=== PATIENT | male | born 1930 | race Caucasian/White ===

== ENCOUNTER 2016-03-18 12:07 | Emergency (ER) | payer MEDICARE, OTHER ==
[2015-10-24 11:55] VITALS: BMI 27.5
[~2016-03-18 12:07] MED LIST: ADVAIR 500/501 DISK INH; ARBINOXA4 MG/5 ML PO; ARICEPT10 MG PO; ASTELIN137 MCG NASAL; FISH OIL 1,0001 CA1 PO; HYDROCODONE-APA1 TAB PO; IPRAT-ALBUT 0.5-3 ML UPD; JANUVIA100 MG PO; K-DUR20 MEQ PO; LEVAQUIN750 MG PO; MUCINEX600 MG PO; MUCOMYST 2800 MG/4 M PO; NAMENDA10 MG PO; NORVASC10 MG PO; PLAVIX75 MG PO; PRAVACHOL40 MG PO; SINGULAIR10 MG PO; STERAPRED DS 1210 MG PO; TOPROL XL100 MG PO; TRAZODONE HCL50 MG PO; VENTOLIN HFA18 GM INH; VITAMIN B-1000 MCG/M IM; ZANTAC300 MG PO; ZYLOPRIM100 MG PO
[2016-03-18 13:08] LABS: BASOPHILS 0.3 % (0.0-2.0); EOSINOPHILS 2.3 % (0-7); HEMATOCRIT 41.1 % (42.0-54.0); HEMOGLOBIN 13.5 g/dL (13.5-17.5); IMMATURE GRANULOCYTES 0.3 % (0-5); LYMPHOCYTES 18.9 % (15-50); MCHC 32.8 g/dL (31.0-37.0); MCV 103.5 fL (80.0-100.0); MEAN PLATELET VOLUME 10.9 fL (7.4-10.4); NEUTROPHILS 70.2 % (40-80); PLATELET COUNT 142 10x3/uL (130-400); RBC 3.97 10x6/uL (4.20-6.10); RDW 13.3 % (11.5-14.5); WBC 11.5 10x3/uL (4.8-10.8)
[2016-03-18 13:31] LABS: ALBUMIN 3.7 g/dL (3.4-5.0); ALKALINE PHOSPHATASE 76 U/L (46-116); ALT (SGPT) 31 U/L (10-68); BILIRUBIN - TOTAL 0.51 mg/dL (0.2-1.3); CALC OSMOLALITY 279 mosm/kg (275-300); CALCIUM 9.7 mg/dL (8.5-10.1); CARBON DIOXIDE 27.7 mmol/L (21.0-32.0); CHLORIDE - SERUM 105 mmol/L (98-107); CREATININE - SERUM 1.6 mg/dL (0.6-1.3); POTASSIUM - SERUM 4.6 mmol/L (3.5-5.1); PROTEIN - SERUM 6.8 g/dL (6.4-8.2); SODIUM 140 mmol/L (136-145); UREA NITROGEN 15 mg/dL (7-18); eGFR NON AFRICAN AMERICAN 44 mL/min (90-120)
[2016-03-18 13:32] LABS: GLUCOSE 100 mg/dL (74-106)
[2016-03-18 13:42] LABS: CHOL - HDL RATIO 3.2 ratio (2.3-4.9); CHOLESTEROL, TOTAL 109 mg/dL (0-200); CKMB 0.9 U/L (0.0-3.6); CREATINE KINASE 70 UL (21-232); HDL CHOLESTEROL 34 mg/dL (32-96); LDL CHOLESTEROL 40 mg/dL (0-100); LDL-HDL RATIO 1.2 ratio (1.5-3.5); TRIGLYCERIDE 179 mg/dL (30-200)
[2016-03-18 13:46] LABS: TROPONIN-I < 0.017 ng/mL (0.000-0.060)
== END 2016-03-18 15:27 | disposition home or self-care (01) ==
LOC: D.ER 12:07
PROVIDERS: Emergency Medicine
DX: R11.0 Nausea (principal); R10.13 Epigastric pain; E11.9 Type 2 diabetes mellitus without complications; Z95.0 Presence of cardiac pacemaker; I45.10 Unspecified right bundle-branch block

== ENCOUNTER → 2017-01-26 09:26 | Outpatient (CLI) | payer MEDICARE, OTHER ==
[2015-10-24 11:55] VITALS: BMI 27.5
== END | disposition home or self-care (01) ==
LOC: D.US 01-25 11:30
DX: I71.4 Abdominal aortic aneurysm, without rupture (principal)

== ENCOUNTER 2017-09-08 15:07 | Inpatient (IN) | payer MEDICARE, OTHER ==
[~2017-09-08] VITALS: Ht 172.7 cm; Wt 80.3 kg
--- NOTE | ~2017-09-08 | CN ---
PATIENT NAME:CHOLO UP MEDICAL RECORD: [id number] : 32 LOCATION:[facility] ADMIT DATE: 09/08/17 ACCOUNT: [id number] CONSULTING PHYSICIAN: BULMARO FERGUSON MD REFERRING PHYSICIAN: ROSALIA JORDAN MD DATE OF CONSULTATION: 09/12/2017 CONSULT REQUESTING PHYSICIAN: Teofilo Milton MD REASON FOR CONSULTATION: Bilateral pneumonia, [id number] hypoxic respiratory failure. HISTORY OF PRESENT ILLNESS: Mr. Up is an 86-year-old gentleman who was just discharged from the rehabilitation. The patient was readmitted with shortness of breath as well as severe backache. Chest radiograph showed bilateral infiltrate. He has cough without significant sputum production. He is also feeling very weak and lethargic. REVIEW OF SYSTEMS: Mainly in the history of present illness. PAST MEDICAL HISTORY: 1. Asthma. 2. History of BPH. 3. Hypertension. 4. Coronary artery disease. 5. History of aortic aneurysm. ALLERGIES: There is no known drug allergies. PAST SURGICAL HISTORY: 1. He has had TURP surgery. 2. Cataract surgery. MEDICATIONS: On Elivar is reviewed. PERSONAL AND SOCIAL HISTORY: The patient is and lives with his . He is drinking, but he is an ex-smoker. FAMILY HISTORY: Noncontributory. PHYSICAL EXAMINATION: GENERAL: Now, the patient is lying comfortably in bed. He is not in acute distress. VITAL SIGNS: The blood pressure is 103/82, pulse is 72, respiration is 18, temperature is 98.1, and SpO2 is 100% on 10 liters oxymizer. HEENT: Conjunctivae are pink. Sclerae are not icteric. NECK: The neck is supple, no JVD. CHEST: The chest excursion is minimal on both sides with bilateral crackles. No wheezing. HEART: Rhythm regular, normal sound, no murmur. ABDOMEN: The abdomen is soft, bowel sounds present. No hepatosplenomegaly. RECTAL: Deferred. EXTREMITIES: No cyanosis, no clubbing, no pedal edema. SKIN: The skin is warm, normal turgor. CENTRAL NERVOUS SYSTEM: The patient is awake and alert. There are no obvious CONSULT REPORT [id number] CHOLO UP cranial nerve abnormality. The gait was not tested. IMAGING: CT scan of the chest: There was no PE. There are bilateral lower lobe infiltrates. There is a small pleural effusion. LABORATORY DATA: CBC: The WBC is 14.4, hemoglobin 8.2, hematocrit 25.1, it dropped to 23.8. Platelet count is 249. IMPRESSION: 1. Acute hypoxic respiratory failure. 2. Bilateral lower lobe pneumonia, most likely hospital-acquired pneumonia. 3. Chronic obstructive pulmonary disease, acute exacerbation. 4. Bilateral pleural effusion, possible parapneumonic. 5. Leukocytosis secondary to pneumonia, possible urinary tract infection. 6. Backache. 7. Anemia, possible GI blood loss. 8. Possible urinary tract infection. RECOMMENDATION: 1. Continue supplemental oxygen. Agree with blood transfusion. 2. Cover for the hospital-acquired pneumonia. Continue Levaquin. I will add cefepime. 3. Albuterol, ipratropium nebulizer. 4. Brovana, budesonide nebulizer. 5. Follow up labs and chest radiograph. Dr. Milton, thank you for involving me in the care of Mr. Up. TRANSINT:[id number] Voice Confirmation ID: [id number] DOCUMENT ID: [id number] BULMARO FERGUSON MD at 1110 CC: [id number] DICTATION DATE: 09/12/17 183 PREMIX CONCRETE BATCHER: 09/12/17 1930 ADM IN [place] [id number] [place] [address]
[2017-09-08] MEDS ORDERED: DIOVAN160 MG PO (15:19)
[2017-09-08] MEDS ORDERED: OXYBUTYNIN CHLOR5 MG PO (15:19)
[2017-09-08] MEDS ORDERED: PROSCAR5 MG PO (15:19)
[2017-09-08] MEDS ORDERED: LIPITOR10 MG PO (15:20)
[2017-09-08] MEDS ORDERED: CLARITIN10 MG/TAB PO (15:20)
[2017-09-08] MEDS ORDERED: NEURONTIN600 MG PO (15:20)
[2017-09-08] MEDS ORDERED: FLUTICASONE PRO16 GM NASAL (15:21)
[2017-09-08] MEDS ORDERED: CYCLOBENZAPRINE10 MG PO (15:21)
[2017-09-09] VITALS: BP 189/59
[2017-09-09 00:03] VITALS: BP 189/59; BMI 26.9
[2017-09-09 04:59] VITALS: BP 144/46
[2017-09-09 09:35] VITALS: BMI 26.9
[2017-09-09 09:36] VITALS: BP 142/51
[2017-09-09 11:26] VITALS: Ht 172.7 cm; Wt 80.3 kg
[2017-09-09 13:04] LABS: BASOPHILS 0.1 % (0-2); EOSINOPHILS 0.2 % (0-7); HEMATOCRIT 26.5 % (42.0-54.0); HEMOGLOBIN 8.8 g/dL (13.5-17.5); IMMATURE GRANULOCYTES 0.4 % (0-5); LYMPHOCYTES 6.4 % (15-50); MCH 33.5 pg (26.0-34.0); MCHC 33.2 g/dL (31.0-37.0); MCV 100.8 fL (80.0-100.0); NEUTROPHILS 85.9 % (40-80); RBC 2.63 10x6/uL (4.20-6.10); RDW 14.5 % (11.5-14.5); WBC 17.1 10x3/uL (4.8-10.8)
[2017-09-09 13:08] LABS: PLATELET COUNT 198 10x3/uL (130-400)
[2017-09-09 13:27] LABS: ANION GAP 12.7 mmol/L (8-16); CALCIUM 8.6 mg/dL (8.5-10.1); CREATININE - SERUM 1.5 mg/dL (0.6-1.3); POTASSIUM - SERUM 4.7 mmol/L (3.5-5.1)
[2017-09-09 13:36] LABS: C-REACTIVE PROTEIN 25.5 mg/dL (0.0-0.9)
[2017-09-09 15:03] VITALS: BP 142/53
[2017-09-09 15:13] LABS: ERYTHROCYTE SEDIMENTATION RATE 71 mm/hr (0-30)
[2017-09-10 00:43] VITALS: BP 124/57
[2017-09-10 04:33] VITALS: BP 131/87
[2017-09-10 05:39] LABS: HEMOGLOBIN 8.6 g/dL (13.5-17.5); MCH 32.7 pg (26.0-34.0); MCHC 33.1 g/dL (31.0-37.0); MCV 98.9 fL (80.0-100.0); MEAN PLATELET VOLUME 9.6 fL (7.4-10.4); PLATELET COUNT 211 10x3/uL (130-400); RBC 2.63 10x6/uL (4.20-6.10); RDW 14.3 % (11.5-14.5); WBC 21.2 10x3/uL (4.8-10.8)
[2017-09-10 06:07] LABS: ANION GAP 11.9 mmol/L (8-16); CALCIUM 8.9 mg/dL (8.5-10.1); CARBON DIOXIDE 25.4 mmol/L (21.0-32.0); CREATININE - SERUM 1.5 mg/dL (0.6-1.3); POTASSIUM - SERUM 4.3 mmol/L (3.5-5.1)
[2017-09-10 07:24] LABS: LYMPHOCYTES 5 % (15-50); MONOCYTES 3 % (2-11); NEUTROPHILS 92 % (40-80); PLATELET ESTIMATE NORMAL
[2017-09-10 08:30] VITALS: BP 131/57
[2017-09-10 12:45] VITALS: BP 131/57
[2017-09-10 16:31] VITALS: BP 131/57
[2017-09-10 21:05] VITALS: BP 120/48
[2017-09-11 06:10] LABS: BASOPHILS 0.1 % (0-2); EOSINOPHILS 0.4 % (0-7); HEMATOCRIT 25.1 % (42.0-54.0); HEMOGLOBIN 8.2 g/dL (13.5-17.5); IMMATURE GRANULOCYTES 0.3 % (0-5); LYMPHOCYTES 8.2 % (15-50); MCH 32.4 pg (26.0-34.0); MCHC 32.7 g/dL (31.0-37.0); MCV 99.2 fL (80.0-100.0); MONOCYTES 5.7 % (2-11); NEUTROPHILS 85.3 % (40-80); PLATELET COUNT 237 10x3/uL (130-400); RBC 2.53 10x6/uL (4.20-6.10); RDW 14.4 % (11.5-14.5); WBC 14.4 10x3/uL (4.8-10.8)
[2017-09-11 06:12] LABS: APPEARANCE CLEAR (CLEAR); BILIRUBIN NEGATIVE (NEGATIVE); COLOR YELLOW (YELLOW); GLUCOSE NEGATIVE (NEGATIVE); KETONE NEGATIVE (NEGATIVE); NITRITE NEGATIVE (NEGATIVE); PROTEIN 1+ mg/dL (NEGATIVE); SPECIFIC GRAVITY 1.015 (1.005-1.020); UROBILINOGEN NORMAL (NORMAL)
[2017-09-11 06:13] LABS: BACTERIA FEW /hpf (NONE SEEN); EPITHELIAL CELLS 0-5 /hpf (0-5); RED CELLS - URINE 0-5 /hpf (0-5); WHITE CELLS - URINE 0-5 /hpf (0-5)
[2017-09-11 06:45] LABS: ANION GAP 12.5 mmol/L (8-16); CALCIUM 8.8 mg/dL (8.5-10.1); CARBON DIOXIDE 27.3 mmol/L (21.0-32.0); CREATININE - SERUM 1.6 mg/dL (0.6-1.3); POTASSIUM - SERUM 3.8 mmol/L (3.5-5.1)
[2017-09-11 06:57] VITALS: BP 131/46
[2017-09-11 09:23] VITALS: BP 131/67
[2017-09-11 12:48] VITALS: BP 124/40
[2017-09-11 17:13] VITALS: BP 106/48
[2017-09-11 19:21] VITALS: BP 117/50
[2017-09-11 22:51] VITALS: BP 117/50
[2017-09-12] VITALS (8 sets, daily range): BP systolic 103–132; BP diastolic 48–82
[2017-09-12 06:33] LABS: BASOPHILS 0.2 % (0-2); EOSINOPHILS 0.9 % (0-7); HEMATOCRIT 23.8 % (42.0-54.0); HEMOGLOBIN 7.6 g/dL (13.5-17.5); IMMATURE GRANULOCYTES 0.2 % (0-5); LYMPHOCYTES 11.5 % (15-50); MCH 32.2 pg (26.0-34.0); MCHC 31.9 g/dL (31.0-37.0); MCV 100.8 fL (80.0-100.0); MEAN PLATELET VOLUME 10.2 fL (7.4-10.4); MONOCYTES 8.6 % (2-11); NEUTROPHILS 78.6 % (40-80); PLATELET COUNT 249 10x3/uL (130-400); RBC 2.36 10x6/uL (4.20-6.10); RDW 14.6 % (11.5-14.5)
[2017-09-12 06:43] LABS: WBC 10.7 10x3/uL (4.8-10.8)
[2017-09-12 06:54] LABS: ANION GAP 10.3 mmol/L (8-16); CALCIUM 8.8 mg/dL (8.5-10.1); CARBON DIOXIDE 28.5 mmol/L (21.0-32.0); CREATININE - SERUM 1.8 mg/dL (0.6-1.3); POTASSIUM - SERUM 3.8 mmol/L (3.5-5.1)
[2017-09-12 09:50] LABS: % SATURATION 26 % (15-55); IRON 29 ug/dl (35-150); TOTAL IRON BIND CAPACITY 108 ug/dl (260-445); UNSAT IRON BIND CAPACITY 79 ug/dl (150-375)
[2017-09-13 04:26] VITALS: BP 122/62
[2017-09-13 05:47] LABS: BASOPHILS 0.1 % (0-2); EOSINOPHILS 1.1 % (0-7); IMMATURE GRANULOCYTES 0.3 % (0-5); LYMPHOCYTES 9.9 % (15-50); MCHC 32.7 g/dL (31.0-37.0); MONOCYTES 6.9 % (2-11); NEUTROPHILS 81.7 % (40-80); PLATELET COUNT 206 10x3/uL (130-400); RDW 17.2 % (11.5-14.5); WBC 9.9 10x3/uL (4.8-10.8)
[2017-09-13 05:58] LABS: HEMATOCRIT 30.3 % (42.0-54.0); HEMOGLOBIN 9.9 g/dL (13.5-17.5); RBC 3.19 10x6/uL (4.20-6.10)
[2017-09-13 06:11] LABS: ANION GAP 12.5 mmol/L (8-16); CALCIUM 8.9 mg/dL (8.5-10.1); CARBON DIOXIDE 26.3 mmol/L (21.0-32.0); CREATININE - SERUM 1.6 mg/dL (0.6-1.3); POTASSIUM - SERUM 3.8 mmol/L (3.5-5.1)
[2017-09-13 08:54] VITALS: BP 112/59
[2017-09-13 09:19] LABS: FOLATE (FOLIC ACID) - SERUM >20.0 ng/mL (>3.0)
[2017-09-13 12:45] VITALS: BP 139/49
[2017-09-13 16:31] VITALS: BP 133/44
[2017-09-13 20:00] VITALS: BP 124/45
[2017-09-13 23:59] VITALS: BP 124/75
[2017-09-14 04:00] VITALS: BP 123/50
[2017-09-14 05:39] LABS: BASOPHILS 0.2 % (0-2); EOSINOPHILS 3.2 % (0-7); HEMATOCRIT 29.6 % (42.0-54.0); HEMOGLOBIN 9.6 g/dL (13.5-17.5); IMMATURE GRANULOCYTES 0.3 % (0-5); LYMPHOCYTES 8.8 % (15-50); MCH 31.3 pg (26.0-34.0); MCHC 32.4 g/dL (31.0-37.0); MCV 96.4 fL (80.0-100.0); MONOCYTES 8.1 % (2-11); NEUTROPHILS 79.4 % (40-80); PLATELET COUNT 206 10x3/uL (130-400); RBC 3.07 10x6/uL (4.20-6.10); RDW 17.1 % (11.5-14.5); WBC 11.5 10x3/uL (4.8-10.8)
[2017-09-14 05:59] LABS: ANION GAP 13.4 mmol/L (8-16); CALCIUM 8.8 mg/dL (8.5-10.1); CARBON DIOXIDE 25.6 mmol/L (21.0-32.0); CREATININE - SERUM 1.4 mg/dL (0.6-1.3)
[2017-09-14 08:07] VITALS: BP 118/46
[2017-09-14 13:03] VITALS: BP 92/57
[2017-09-14 15:41] VITALS: BP 128/49
[2017-09-14 19:48] VITALS: BP 119/51
[2017-09-14 23:54] VITALS: BP 126/55
[2017-09-15 04:00] VITALS: BP 124/52
[2017-09-15 06:06] LABS: HEMATOCRIT 29.4 % (42.0-54.0); HEMOGLOBIN 9.9 g/dL (13.5-17.5); LYMPHOCYTES 8.3 % (15-50); MCH 32.2 pg (26.0-34.0); MCHC 33.7 g/dL (31.0-37.0); MCV 95.8 fL (80.0-100.0); MEAN PLATELET VOLUME 9.8 fL (7.4-10.4); NEUTROPHILS 83.5 % (40-80); PLATELET COUNT 194 10x3/uL (130-400); RBC 3.07 10x6/uL (4.20-6.10); WBC 11.3 10x3/uL (4.8-10.8)
[2017-09-15 06:38] LABS: ALBUMIN 2.3 g/dL (3.4-5.0); ANION GAP 15.4 mmol/L (8-16); BILIRUBIN - TOTAL 0.43 mg/dL (0.2-1.3); CALCIUM 8.9 mg/dL (8.5-10.1); CARBON DIOXIDE 23.6 mmol/L (21.0-32.0); CREATININE - SERUM 1.4 mg/dL (0.6-1.3); PROTEIN - SERUM 5.6 g/dL (6.4-8.2)
[2017-09-15] MEDS ORDERED: LEVAQUIN500 MG PO (08:58)
[2017-09-15] MEDS ORDERED: MAXIPIME 1 GM/D51 G1 IV (08:58)
[2017-09-15] MEDS ORDERED: BROVANA15 MCG/2 M INH (08:58)
[2017-09-15] MEDS ORDERED: IPRAT-ALBUT 0.5-3 ML UPD (08:58)
[2017-09-15] MEDS ORDERED: FLOMAX0.4 MG PO (08:58)
[2017-09-15] MEDS ORDERED: FLORAJEN3 CAPS460 MG PO (08:59)
[2017-09-15] MEDS ORDERED: HYDROCODONE-APA1 TAB PO ×2 (08:59→11:11)
[2017-09-15] MEDS ORDERED: HUMALOG 30100 UNITS/ SC (09:00)
[2017-09-15] MEDS ORDERED: PEPCID20 MG PO (09:00)
[2017-09-15] MEDS ORDERED: PROTONIX I40 MG/VIAL IV (09:01)
[2017-09-15] MEDS ORDERED: DURAGESIC1 PATCH .4 TRANSDERM (09:01)
[2017-09-15] MEDS ORDERED: PULMICORT0.5 MG/21 UPD (09:01)
[2017-09-15] MEDS ORDERED: CARAFATE1 G/10 ML PO (09:01)
[2017-09-15 09:50] VITALS: BP 117/52
[2017-09-15 13:45] VITALS: BP 100/57
== END 2017-09-15 16:44 | DRG 551 ==
LOC: D.ER 15:07 → D.EDHOLD 18:26 → D.MS 18:26
PROVIDERS: Family Medicine; Internal Medicine Nephrology
DX: S22.049A Unspecified fracture of fourth thoracic vertebra, initial encounter for closed fracture (principal); J18.9 Pneumonia, unspecified organism; J96.01 Acute respiratory failure with hypoxia; R53.2 Functional quadriplegia; J44.0 Chronic obstructive pulmonary disease with (acute) lower respiratory infection; J44.1 Chronic obstructive pulmonary disease with (acute) exacerbation; J98.11 Atelectasis; N17.9 Acute kidney failure, unspecified; J90 Pleural effusion, not elsewhere classified; N39.0 Urinary tract infection, site not specified; S22.089A Unspecified fracture of T11-T12 vertebra, initial encounter for closed fracture; M54.16 Radiculopathy, lumbar region; N40.0 Benign prostatic hyperplasia without lower urinary tract symptoms; I35.0 Nonrheumatic aortic (valve) stenosis; F03.90 Unspecified dementia, unspecified severity, without behavioral disturbance, psychotic disturbance, mood disturbance, and anxiety; Z95.0 Presence of cardiac pacemaker; F17.210 Nicotine dependence, cigarettes, uncomplicated; D50.9 Iron deficiency anemia, unspecified; I10 Essential (primary) hypertension; W19.XXXD Unspecified fall, subsequent encounter; E11.65 Type 2 diabetes mellitus with hyperglycemia

== ENCOUNTER 2017-10-01 22:59 | Inpatient (IN) | payer MEDICARE, OTHER ==
[~2017-10-01] VITALS: Ht 172.7 cm; Wt 77.1 kg
--- NOTE | ~2017-10-01 | CN ---
PATIENT NAME:CHOLO UP MEDICAL RECORD: [id number] : 32 LOCATION:[id number] ADMIT DATE: 10/02/17 ACCOUNT: [id number] CONSULTING PHYSICIAN: LINDSEY ARCOS REFERRING PHYSICIAN: TUTU FRIEDMAN MD DATE OF CONSULTATION: 10/02/2017 HISTORY OF PRESENT ILLNESS: This is an 86-year-old man who has had coronary artery disease with multiple stents in the past. The patient has also pneumonia and has been in rehab. The patient was discharged yesterday and after several hours had severe shortness of breath, was brought to the Emergency Room and there was some suggestion of pulmonary edema. Admission was advised. The patient has also had a history of smoking and about 20 years ago, he was prescribed with a nebulizer but did not use it. I am unable to get a history from the patient. The patient has been on a nonrebreathing mask. History is obtained from family and the chart. PAST MEDICAL HISTORY: Remarkable for diabetes, there is also coronary artery disease, hypertension, history of aortic aneurysm. He has also had a history of COPD and asthma. Also, had bladder carcinoma and acid reflux. 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 ALLERGIES: No known allergies. MEDICATIONS ON ADMISSION: Include cefepime 1 gram q. 12 hours, levofloxacin 200 mg a day, Brovana 50 mcg b.i.d., DuoNeb updraft 3 cc q. 4 hours, Flomax 0.4 mg at bedtime, Pepcid 20 mg daily, insulin lispro sliding scale a.c. and at bedtime. Fentanyl 12 mcg every 72 hours, Pulmicort 0.5 mg b.i.d., Protonix 40 mg t.i.d., Carafate 1 gram every a.c. and bedtime, [place] 10/325 a half tablet q.6 hours p.r.n. for pain. REVIEW OF SYSTEMS: Unobtainable from the patient. Per family, she has not had any fever or chills. SHEENT: There is no headache, as per the patient had some nasal drainage. PHYSICAL EXAMINATION: GENERAL: Physical exam reveals an elderly man who is in no acute distress, on a nonrebreather mask. VITAL SIGNS: Temperature 98.1, heart rate of 90, respiratory rate 21, blood pressure 105/46, saturation is 88% on nonrebreathing mask. SHEENT: Unremarkable. There is mild diaphoresis. NECK: Supple. There is no adenopathy. Trachea is midline. There is no thyromegaly. CHEST: Exam showed coarse crackles bilaterally. No accessory muscle use. There is no chest wall tenderness. CARDIAC: Exam shows mild jugular venous distention. There is no S3, S4, or gallops. ABDOMEN: Exam shows no tenderness. There is no distention or masses. EXTREMITIES: No clubbing, cyanosis or edema. LABORATORY DATA: White count of 9.5, hemoglobin 7.8, platelet count is 188,000. CONSULT REPORT [id number] CHOLO UP Arterial blood at 12:00 this morning, pH 7.30, pCO2 of 48, pO2 of 82. She is on a nonrebreather mask. Chemistry is remarkable for potassium 3.7, creatinine is 2.2, BUN of 45. Glucose is 137. Troponin I is 0.159. BNP is 19,459. INR is 1.38. D-dimer is 1.79. Chest x-ray showed pulmonary edema and bilateral pleural effusions. ASSESSMENT: 1. Acute respiratory failure with hypoxemia probably secondary to pulmonary edema and no pneumonia with aspiration. 2. Acute pulmonary edema. She will be treated with Lasix and BiPAP. Echocardiogram has been ordered. 3. Rhinitis. 4. History of postnasal drip. 5. Acute kidney injury. 6. Chronic obstructive pulmonary disease with asthma. 7. CODE STATUS: DNR. PLAN: 1. Bronchodilator with DuoNeb. 2. Systemic steroids. 3. Diuresis with Bumex b.i.d. 4. BiPAP to reduce work of breathing. 5. Empiric antibiotics for broad-spectrum coverage, although the patient does not appear to have pneumonia or leukocytosis. 6. Blood cultures. 7. Begin comfort care if there is no significant improvement. This was discussed with the family members at bedside. Total time spent is 75 minutes. All questions answered for the family members. Also discussed with nurse at the bedside. TRANSINT:[id number] Voice Confirmation ID: [id number] DOCUMENT ID: [id number] LINDSEY ARCOS at 1304 CC: [id number] DICTATION DATE: 10/02/17 1544 PARI MUTUEL TICKET CASHIER: 10/03/17 0033 DIS IN 10/03/17 [facility] [address] [facility] [place]
[~2017-10-01 22:59] MED LIST changes: +BROVANA15 MCG/2 M INH; +CARAFATE1 G/10 ML PO; +CLARITIN10 MG/TAB PO; +CYCLOBENZAPRINE10 MG PO; +DIOVAN160 MG PO; +DURAGESIC1 PATCH .4 TRANSDERM; +FLOMAX0.4 MG PO; +FLORAJEN3 CAPS460 MG PO; +FLUTICASONE PRO16 GM NASAL; +HUMALOG 30100 UNITS/ SC; +LEVAQUIN500 MG PO; +LIPITOR10 MG PO; +MAXIPIME 1 GM/D51 G1 IV; +NEURONTIN600 MG PO; +OXYBUTYNIN CHLOR5 MG PO; +PEPCID20 MG PO; +PROSCAR5 MG PO; +PROTONIX I40 MG/VIAL IV; +PULMICORT0.5 MG/21 UPD
[2017-10-01 23:55] LABS: ALBUMIN 2.3 g/dL (3.4-5.0); ANION GAP 12.2 mmol/L (8-16); BILIRUBIN - TOTAL 0.49 mg/dL (0.2-1.3); CALCIUM 8.9 mg/dL (8.5-10.1); CARBON DIOXIDE 24.5 mmol/L (21.0-32.0); CREATININE - SERUM 2.2 mg/dL (0.6-1.3); POTASSIUM - SERUM 3.7 mmol/L (3.5-5.1); PROTEIN - SERUM 6.3 g/dL (6.4-8.2)
[2017-10-01 23:59] LABS: LYMPHOCYTES 6.6 % (15-50); MCH 31.9 pg (26.0-34.0); MCHC 33.3 g/dL (31.0-37.0); MCV 95.6 fL (80.0-100.0); NEUTROPHILS 84.7 % (40-80); PLATELET COUNT 189 10x3/uL (130-400); RBC 2.51 10x6/uL (4.20-6.10); WBC 9.2 10x3/uL (4.8-10.8)
[2017-10-02] VITALS (16 sets, daily range): BP systolic 90–118; BP diastolic 45–78
[2017-10-02 06:26] LABS: BASOPHILS 0.2 % (0-2); EOSINOPHILS 0.9 % (0-7); HEMOGLOBIN 7.8 g/dL (13.5-17.5); IMMATURE GRANULOCYTES 0.3 % (0-5); MCH 30.8 pg (26.0-34.0); MCHC 31.2 g/dL (31.0-37.0); MEAN PLATELET VOLUME 10.1 fL (7.4-10.4); MONOCYTES 9.9 % (2-11); NEUTROPHILS 77.7 % (40-80); PLATELET COUNT 188 10x3/uL (130-400); RBC 2.53 10x6/uL (4.20-6.10); RDW 16.5 % (11.5-14.5); WBC 9.5 10x3/uL (4.8-10.8)
[2017-10-02 06:45] LABS: MCV 98.8 fL (80.0-100.0)
[2017-10-02 07:06] LABS: INR 1.38 (0.85-1.17); PROTIME 16.5 SECONDS (11.6-15.0)
[2017-10-02 07:46] LABS: CKMB 1.4 U/L (0.0-3.6); MAGNESIUM - SERUM 2.1 mg/dL (1.8-2.4); PRO BNP 19459 pg/mL (0-450)
[2017-10-02 07:52] LABS: TROPONIN-I 0.159 ng/mL (0.000-0.060)
[2017-10-03] VITALS (17 sets, daily range): BP systolic 86–117; BP diastolic 38–61; Ht 172.7 cm; Wt 77.1 kg
[2017-10-03 04:08] LABS: BASOPHILS 0 % (0-2); EOSINOPHILS 0 % (0-7); LYMPHOCYTES 4.9 % (15-50); MCH 30.7 pg (26.0-34.0); MCHC 30.5 g/dL (31.0-37.0); MEAN PLATELET VOLUME 10.8 fL (7.4-10.4); MONOCYTES 3.4 % (2-11); NEUTROPHILS 90.7 % (40-80); PLATELET COUNT 199 10x3/uL (130-400); RDW 17.7 % (11.5-14.5); WBC 10.7 10x3/uL (4.8-10.8)
[2017-10-03 04:20] LABS: HEMATOCRIT 33.8 % (42.0-54.0); HEMOGLOBIN 10.3 g/dL (13.5-17.5); MCV 100.9 fL (80.0-100.0); RBC 3.35 10x6/uL (4.20-6.10)
[2017-10-03 04:27] LABS: ALBUMIN 2.4 g/dL (3.4-5.0); ANION GAP 12.8 mmol/L (8-16); BILIRUBIN - TOTAL 0.62 mg/dL (0.2-1.3); CALCIUM 8.8 mg/dL (8.5-10.1); CARBON DIOXIDE 26.1 mmol/L (21.0-32.0); CREATININE - SERUM 2.6 mg/dL (0.6-1.3); MAGNESIUM - SERUM 2.1 mg/dL (1.8-2.4); PROTEIN - SERUM 6.7 g/dL (6.4-8.2); VANCOMYCIN - RANDOM 12.2 ug/mL (10.0-20.0)
[2017-10-03 04:28] LABS: POTASSIUM - SERUM 4.9 mmol/L (3.5-5.1)
== END 2017-10-03 18:24 | disposition hospice, inpatient (51) | DRG 291 ==
LOC: D.ER 22:59 → D.ICU 10-02 02:27 → D.EDHOLD 10-02 02:27 → D.ICU 10-03 00:46
PROVIDERS: Family Medicine; Family Medicine Adult Medicine
DX: I13.0 Hypertensive heart and chronic kidney disease with heart failure and stage 1 through stage 4 chronic kidney disease, or unspecified chronic kidney disease (principal); J96.01 Acute respiratory failure with hypoxia; J18.9 Pneumonia, unspecified organism; J96.02 Acute respiratory failure with hypercapnia; I50.43 Acute on chronic combined systolic (congestive) and diastolic (congestive) heart failure; D62 Acute posthemorrhagic anemia; J81.1 Chronic pulmonary edema; N17.9 Acute kidney failure, unspecified; S22.089D Unspecified fracture of T11-T12 vertebra, subsequent encounter for fracture with routine healing; J44.9 Chronic obstructive pulmonary disease, unspecified; D50.9 Iron deficiency anemia, unspecified; Z66 Do not resuscitate; E11.22 Type 2 diabetes mellitus with diabetic chronic kidney disease; N18.9 Chronic kidney disease, unspecified; K21.9 Gastro-esophageal reflux disease without esophagitis; F03.90 Unspecified dementia, unspecified severity, without behavioral disturbance, psychotic disturbance, mood disturbance, and anxiety; N40.0 Benign prostatic hyperplasia without lower urinary tract symptoms; S32.009D Unspecified fracture of unspecified lumbar vertebra, subsequent encounter for fracture with routine healing; S22.049D Unspecified fracture of fourth thoracic vertebra, subsequent encounter for fracture with routine healing

== ENCOUNTER 2017-10-03 17:04 | Inpatient (IN) | payer OTHER ==
[2017-10-03 10:38] VITALS: BMI 25.8
== END 2017-10-03 19:00 | DRG 951 ==
LOC: D.ICU 17:04
DX: Z51.5 Encounter for palliative care (principal)